=== PATIENT | male | born 1995 | race Two or more races ===

== ENCOUNTER 2020-07-13 03:10 | Emergency (ER) | payer SELFPAY ==
[~2020-07-13] VITALS: Ht 167.6 cm; Wt 68.2 kg
--- NOTE | 2020-07-13 03:22 | PHYS DOC ---
Past Medical History Past Medical History: No Pertinent History General Adult EDM: Chief Complaint: OVERDOSE HPI: HPI: 25M p/w unintentional recreational overdose of oxycodone 30 mg taken PO at 0200 this morning. Family called 911 when patient was found to be obtunded. Fire was bagging the patient upon EMS arrival on scene. Initial GCS 3 with pulse ox 30s. Received narcan 2 mg IV at about 0245 with efficacy. Arrived to the ED with nml pulse ox and GCS 15. Does endorse mild residual SOA, but no CP. No other acute medical complaints. No concomitant drug use. Review of Systems: Review of Systems: Gen: No fever, chills. ENT: No nasal congestion, sore throat. CV: No CP, palpitations. Resp. No cough. Reports SOA. GI: No abd pain, N/V. : No dysuria, hematuria. Neuro: Reported AMS, resolved. Skin: No acute rash or lesion. Remainder of systems reviewed and negative unless otherwise specified. Heart Score: Risk Factors: Risk Factors: DM, Current or recent (<one month) smoker, HTN, HLP, family history of CAD, obesity. Risk Scores: Score 0 - 3: 2.5% MACE over next 6 weeks - Discharge Home Score 4 - 6: 20.3% MACE over next 6 weeks - Admit for Clinical Observation Score 7 - 10: 72.7% MACE over next 6 weeks - Early Invasive Strategies Physical Exam: PE: Gen: NAD. Well nourished. Head: NC/AT. Eyes: No scleral icterus. No conjunctival injection. PERRL 4 mm. ENT: MMM. Neck: Supple. NT. CV: RRR. Peripheral pulses intact. Resp: CTAB. Abd: Soft. NT. ND. MSK: No peripheral cyanosis. No edema. Neuro: A&Ox3. Strength & sensation grossly intact throughout. GCS 15. Skin. Warm. Dry. Psych: Appropriate mood & affect. EKG: EKG: EKG at 0356. Sinus tachycardia. Heart rate 103. Normal intervals. No STEMI. Interpreted by me. Radiology/Procedures: Radiology/Procedures: Study: XR CHEST 1V Indication: Shortness of air. Comparison: None. Findings: The cardiomediastinal silhouette is within normal limits for size. Symmetric baljeet. No confluent airspace infiltrate or layering effusion. Deep sulcus on the right though lung markings extend downward into this region. No pneumothorax appreciated at the apices. Impression: Deep sulcus on the right however a basilar pneumothorax would be unlikely as the image is labeled upright and a pneumothorax would typically be seen at the apex in this position. If the patient was actually imaged supine or near supine consider a repeat upright PA radiograph to further assess. Otherwise no significant radiographic abnormality. Electronically signed by: FARHAN CHANDLER MD (07/13/2020 4:05 AM) [facility] [place] Study: XR CHEST 1V Indication: Right chest pain. Shortness of air. Comparison: 07/13/2020 at 0326 hours Findings: No pneumothorax on the right or left. No focal airspace opacity, pleural effusion or pneumothorax. Unremarkable cardiomediastinal silhouette and baljeet. Impression: No pneumothorax or other acute abnormality by radiography. Electronically signed by: FARHAN CHANDLER MD (07/13/2020 4:19 AM) [facility] [place] Course & Med Decision Making: Course & Med Decision Making Pertinent Labs and Imaging studies reviewed. (See chart for details) In summary, 25M p/w unintentional oxycodone OD at 0200, subsequently became hypo xic and obtunded, responsive to IV narcan 2 mg administered at about 0245 with effect. Mild hypoxia 89% RA on presentation to ED, improved to mid 90s on 2L NC. After initial evaluation, reported subsequent development of mild right upper chest pain. EKG shows no acute injury pattern. Spoke with radiology about CXR with ?deep sulcus sign on right, concerning jose carlos given his right upper chest pain. Radiologist suggested upright PA chest for further evaluation. 0500: PA chest neg for PTX. Has been off O2 for some time now. Pulse ox 92-93% RA. No recurrent hypopnea, hypoxia, or AMS. Stable for DC. Advised cessation of recreational drug use. Family able to transport home. Return precautions given. Miguel Ángel Disclaimer: Miguel Ángel Disclaimer: This electronic medical record was generated, in whole or in part, using a voice recognition dictation system. Departure Departure Impression: Primary Impression: Opiate overdose Disposition: DC HOME SELF CARE/HOMELESS Condition: STABLE Patient Instructions: Narcotic Overdose LILIA MONROE DO Jul 13, 2020 03:22
--- NOTE | 2020-07-13 03:59 | EKG ---
[facility] [address] [place] [address] Test Date: 2020-07-13 Test Time: 03:56:15 Pat Name: TRUMAN STORM Department: Room: Gender: M [employer] Cutter: : 1995 Requested By: LILIA MONROE Order Number: [id number] Reading MD: Measurements Intervals [place] Rate: 103 P: 43 WA: 138 QRS: 33 QRSD: 84 T: 34 QT: 318 QTc: 418 Interpretive Statements SINUS TACHYCARDIA QRS(T) CONTOUR ABNORMALITY CONSIDER ANTEROLATERAL MYOCARDIAL DAMAGE POSSIBLY ABNORMAL ECG RI6.01 No previous ECG available for comparison
--- NOTE | 2020-07-13 04:07 | RAD ---
Study: XR CHEST 1V Indication: Shortness of air. Comparison: None. Findings: The cardiomediastinal silhouette is within normal limits for size. Symmetric baljeet. No confluent airsp salima infiltrate or layering effusion. Deep sulcus on the right though lung markings extend downward in to this region. No pneumothorax appreciated at the apices. Impression: Deep sulcus on the right however a basilar pneumothorax would be unlikely as the image is labeled upr ight and a pneumothorax would typically be seen at the apex in this position. If the patient was actu ally imaged supine or near supine consider a repeat upright PA radiograph to further assess. Otherwis e no significant radiographic abnormality. Electronically signed by: FARHAN CHANDLER MD (07/13/2020 4:05 AM) [facility]
--- NOTE | 2020-07-13 04:22 | RAD ---
Study: XR CHEST 1V Indication: Right chest pain. Shortness of air. Comparison: 07/13/2020 at 0326 hours Findings: No pneumothorax on the right or left. No focal airspace opacity, pleural effusion or pneumothorax. Un remarkable cardiomediastinal silhouette and baljeet. Impression: No pneumothorax or other acute abnormality by radiography. Electronically signed by: FARHAN CHANDLER MD (07/13/2020 4:19 AM) [facility]
[2020-07-13 04:43] VITALS: BP 148/94
== END 2020-07-13 05:15 | disposition home or self-care (01) ==
LOC: ER 03:10
DX: T40.2X1A Poisoning by other opioids, accidental (unintentional), initial encounter (principal); Y92.89 Other specified places as the place of occurrence of the external cause
CPT/HCPCS: 71045; 93005; 99283; 99284